=== PATIENT | male | born 2000 | race Caucasian/White ===

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

== ENCOUNTER 2019-04-13 09:39 | Outpatient (RCR) | payer BC ==
[~2019-04-13] VITALS: Ht 73 cm; Wt 76.0 kg
[2019-04-13] VITALS (32 sets, daily range): BP systolic 110–143; BP diastolic 60–96
[2019-04-13] MEDS ORDERED: ATROPINE INJECTION 1 MG/10 ML SYR (ABBOTT) ONE (09:42)
[2019-04-13] MEDS ORDERED: NS IV 1000 ML 1,000 ML ONE (09:42)
[2019-04-13] MEDS ORDERED: NS IV 1000 ML 1,000 ML IV ONE (09:53)
--- NOTE | 2019-05-11 10:53 | Cardiology Tilt Table Test ---
Cardiology-Tilt Table Test Tilt Table Test Date 05/11/19 Patient was tilted to 75 degrees for [10] minutes, then returned to supine position, given [2] sublingual nitroglycerin tablets, then tilted again to 75 degrees for [15] minutes. During test, patient was: asymptomatic In Conclusion;: Negative Tilt Table Test Patient did not have hypotension with and without nitroglycerin. No significant heart rate response. No symptoms. Sanya MONIQUE MD May 11, 2019 10:53
== END 2019-07-12 | disposition home or self-care (01) ==
LOC: CARD 09:39
PROVIDERS: ATTEND Internal Medicine Interventional Cardiology
DX: R55 Syncope and collapse (principal); E06.3 Autoimmune thyroiditis; I10 Essential (primary) hypertension
CPT/HCPCS: 93270; 93306; 93660